=== PATIENT | male | born 1985 | race Caucasian/White ===

== ENCOUNTER 2017-06-13 07:00 | Inpatient (IN) | payer OTHER ==
[~2017-06-13] VITALS: Ht 175.3 cm; Wt 94.3 kg
--- NOTE | ~2017-06-13 | PN ---
Unit #: [id number] #: [id number] Patient: ARAMIS HERNANDEZ [id number] [facility] [address] [place] [address] [id number] I MR#: [id number] NAME: ARAMIS HERNANDEZ. ROOM: P254 Age: 31 Sex: M Admission Date: 06/13/2017 : 1985 Attending Physician: Kari Givens M.D. Admitting Physician: Kari Givens M.D. Primary Care Physician: Generic Doctor Not In System [facility] PROGRESS NOTES DATE OF SERVICE: 06/17/2017 SUBJECTIVE Mr. Hernandez is a 31-year-old white male, who was seen today and chart was reviewed and case was discussed with the staff. He has been anxious, withdrawn, and rather seclusive to himself. It appears to be showing very poor insight into his situation and having attitude take responsibility for his actions leading to hospitalizations and blaming it on the emergency room and the doctors there asking him direct questions and prompting response from him and getting him into the hospital. MENTAL STATUS EXAMINATION Young white male, who was casually dressed with fair personal hygiene, appears to be in no acute distress or discomfort. He was awake and alert on interaction with intact orientation. His mood was anxious with a congruent affect. His speech was slow and goal directed. He denies any current suicidal or homicidal ideations and his insight and judgment remain slightly impaired. TREATMENT PLAN 1. We will continue him on his current treatment protocol. We will monitor his response to the medication and make further adjustments as needed. 2. We will continue to follow up. Dictated by... Kari Givens M.D. IAA/modl TD: 06/18/2017 04:54 JOB #: [id number] Unit #: [id number] #: [id number] Patient: ARAMIS HERNANDEZ [facility] PROGRESS NOTES Page 1 of 1 X Kari Givens MD X PROGRESS NOTE
--- NOTE | ~2017-06-13 | HP ---
Unit #: [id number] #: [id number] Patient: ARAMIS CAMPBELL [id number] [place] [address] [id number] I MR#: [id number] NAME: ARAMIS CAMPBELL. ROOM: P254 Age: 31 Sex: M Admission Date: 06/13/2017 : 1985 Attending Physician: Kari Givens M.D. Admitting Physician: Kari Givens M.D. Primary Care Physician: Generic Doctor Not In System HISTORY AND PHYSICAL HISTORY OF PRESENT ILLNESS Aramis is a 31 year old admitted to [address] [place] [address] with depression and verbalizing wanting to hurt himself. PAST MEDICAL HISTORY Nothing significant. PAST SURGICAL HISTORY Nothing reported. ALLERGIES No known drug allergies. SOCIAL HISTORY He does not smoke. Drinks alcohol occasionally and denies illicit drug use. FAMILY HISTORY Medically noncontributory. REVIEW OF SYSTEMS CONSTITUTIONAL: No fever or chills. HEENT: Denies any sore throat, ear pain or runny nose. CARDIOVASCULAR: Denies chest pain, irregular heart rhythm or palpitations. CHEST: Denies shortness of breath or cough. No hemoptysis. GASTROINTESTINAL: Denies nausea, vomiting, diarrhea or chronic constipation. ENDOCRINE: Denies history of increased thirst or urination. No recent significant weight loss or gain. GENITOURINARY: Denies dysuria, frequency, or hematuria. SKIN: Denies any rashes. HEMATOLOGIC: Denies history of increased bleeding or bruising. MUSCULOSKELETAL: Denies any hot, swollen joints. No generalized muscle pain. NEUROLOGIC: Denies problems with vision or speech. No frequent, severe headaches. No numbness, tingling or weakness in any extremities. Denies loss of bladder or bowel control. CURRENT MEDICATIONS 1. Lexapro 10 mg daily. 2. Milk of Magnesia p.r.n. 3. Maalox p.r.n. 4. Tylenol p.r.n. Unit #: [id number] #: [id number] Patient: ARAMIS CAMPBELL PHYSICAL EXAMINATION GENERAL: Alert, well-nourished, in no apparent distress. VITAL SIGNS: Blood pressure 124/72, heart rate 70, respirations 16, temperature 98.6. WEIGHT: 208. HEIGHT: 5 feet 9 inches. SKIN: Warm and dry without rash or lesion. HEENT: Normocephalic. TMs not viewed. Oral and nasal passages clear. Conjunctivae clear. PERRLA. EOMs intact. NECK: Supple without lymphadenopathy or thyromegaly. HEART: Regular rate and rhythm without murmur. LUNGS: Clear. ABDOMEN: Soft, nontender. : Not done. EXTREMITIES: No evidence of cyanosis, clubbing or edema. Moves all without focal deficit. NEUROLOGICAL: Grossly within normal limits. Cranial Nerves: II: Visual villalobos are intact. III, IV AND : Extraocular movements are intact. Pupils are equal, round and reactive to light. V: Facial sensation is grossly normal. VII: Facial movements and expression are normal. VIII: Auditory acuity grossly intact. IX, X: Uvula is midline. Phonation is normal. XI: Patient shrugs shoulders and turns head normally. XII: Tongue protrudes in the midline. Sensory and Motor Function: Sensory and motor sensation is grossly normal. Motor: moves all extremities well. Coordination: Gait is normal. Deep Tendon Reflexes: Intact. IMPRESSION Psychiatric admission. RECOMMENDATIONS PSYCHIATRIC: Per psychiatrist. MEDICAL: See no contraindication to participate in facility's activities. MEDICAL PROGNOSIS Good. MEDICAL CONDITION Stable. Dictated by... Linda Shah PMariannaAMarianna-Zelda. for Shantanu Rader/alphonso TD: 06/14/2017 15:18 JOB #: [id number] Unit #: [id number] #: [id number] Patient: ARAMIS CAMPBELL HISTORY AND PHYSICAL Page 1 of 1 X Linda Shah HISTORY AND PHYSICAL
--- NOTE | ~2017-06-13 | PN ---
Unit #: [id number] #: [id number] Patient: ARAMIS HERNANDEZ [id number] [facility] [address] [place] [address] [id number] I MR#: [id number] NAME: ARAMIS HERNANDEZ. ROOM: P254 Age: 31 Sex: M Admission Date: 06/13/2017 : 1985 Attending Physician: Kari Givens M.D. Admitting Physician: Kari Givens M.D. Primary Care Physician: Cyn Doctor Not In System [facility] PROGRESS NOTES DATE OF SERVICE: 06/15/2017 SUBJECTIVE Mr. Hernandez is a 31-year-old white male, who was seen today and chart was reviewed and case was discussed with the staff. He has been anxious, withdrawn, and rather seclusive to himself. Meanwhile, he has been cooperative with treatment recommendation and has been taking medications and tolerating them fairly well with no reported side effects. MENTAL STATUS EXAMINATION Young white male, who was casually dressed with a fair personal hygiene and appears to be in no acute distress or discomfort. He was awake and alert with intact orientation. His mood was anxious with a congruent affect. He denies any suicidal or homicidal ideations. His insight and judgment remain slightly impaired. TREATMENT AND PLAN 1. We will continue him on his current medications and treatment protocol. We will monitor his response to medications and make further adjustments as needed. 2. We will continue to follow up. Dictated by... Shantanu Ibrahim/vidhil TD: 06/17/2017 04:17 JOB #: [id number] [facility] PROGRESS NOTES Page 1 of 1 X Kari Givens MD PROGRESS NOTE
--- NOTE | ~2017-06-13 | PN ---
Unit #: [id number] #: [id number] Patient: ARAMIS HERNANDEZ [id number] [facility] [address] [place] [address] [id number] MR#: [id number] NAME: ARAMIS HERNANDEZ ROOM: P254 Age: 31 Sex: M Admission Date: 06/13/2017 : 1985 Attending Physician: Kari Givens M.D. Admitting Physician: Kari Givens M.D. Primary Care Physician: Cyn Doctor Not In System [facility] PROGRESS NOTES DATE 06/14/2017 DISCUSSION Mr. Hernandez is a 31-year-old, white male who was seen today and chart was reviewed and case was discussed with the staff. He seemed to be rather anxious ____ and tried to mask and minimize his presentation and his depressive symptoms and that there is nothing wrong with him and he should not even be here though he does admit to having history of depressive symptoms and denies suicidal ideations and states that the suicidal ideations reported in the emergency room were a mistake. TREATMENT PLAN 1. We will continue him on his current medications and treatment protocol. We will monitor his response to the medication and we will encourage him show better compliance with treatment recommendations. 2. We will continue to follow up. Dictated by... Shantanu Ibrahim/cori TD: 06/17/2017 03:41 JOB #: [id number] [facility] PROGRESS NOTES Page 1 of 1 X Kari Givens MD PROGRESS NOTE
--- NOTE | ~2017-06-13 | PN ---
Unit #: [id number] #: [id number] Patient: ARAMIS HERNANDEZ [id number] [facility] [address] [place] [address] [id number] MR#: [id number] NAME: ARAMIS HERNANDEZ. ROOM: P254 Age: 31 Sex: M Admission Date: 06/13/2017 : 1985 Attending Physician: Kari Givens M.D. Admitting Physician: Kari Givens M.D. Primary Care Physician: Cyn Doctor Not In System [facility] PROGRESS NOTES DATE OF SERVICE: 06/16/2017 SUBJECTIVE Mr. Hernandez is a 31-year-old white male, who was seen today and chart was reviewed and case was discussed with the staff. He has been anxious, withdrawn, and rather seclusive to himself. Meanwhile, he has been cooperative with treatment recommendation and has been taking medications and tolerating them fairly well with no reported side effects. MENTAL STATUS EXAMINATION Young white male, who was casually dressed with a fair personal hygiene and appears to be in no acute distress or discomfort. He was awake and alert on interaction with intact orientation. His mood was anxious with a congruent affect. He denies any suicidal or homicidal ideations. His insight and judgment remain slightly impaired. TREATMENT PLAN 1. We will continue him on his current medications and treatment protocol. We will monitor his response to the medication and make further adjustments as needed. 2. We will continue to follow up. Dictated by... Shantanu Ibrahim/sheila TD: 06/18/2017 04:13 JOB #: [id number] [facility] PROGRESS NOTES Page 1 of 1 X Kari Givens MD PROGRESS NOTE
--- NOTE | ~2017-06-13 | DS ---
Unit #: [id number] #: [id number] Patient: ARAMIS HERNANDEZ [id number] [facility] [address] [place] [address] [id number] I MR#: [id number] NAME: ARAMIS HERNANDEZ. ROOM: P254 Age: 31 Sex: M Admission Date: 06/13/2017 : 1985 Discharge Date: 06/18/2017 Attending Physician: Kari Givens M.D. Primary Care Physician: Generic Doctor Not In System DISCHARGE SUMMARY IDENTIFYING DATA Mr. Hernandez is a 31-year-old white male with history of mood disorder, who was brought to the hospital with suicidal ideations. DISCHARGE DIAGNOSES Psychiatric: Major depressive disorder, recurrent, moderate, without psychotic features. Medical: None. Stressors: Mild psychosocial stressors. HISTORY OF PRESENT ILLNESS Please see initial psychiatric evaluation for details. PAST PSYCHIATRIC HISTORY Please see initial psychiatric evaluation for details. PAST MEDICAL HISTORY Please see initial psychiatric evaluation for details. HOSPITAL COURSE The patient was admitted to the adult psychiatric unit at [facility] and was oriented to the hospital environment. Routine p.r.n. medications were initiated, and he was started back on his home medications. Lexapro was started as an antidepressant and he was closely monitored. He was polite and pleasant and cooperative with the treatment recommendations and was taking the medications regularly and was tolerating them fairly well and was able to show a decent and therapeutic response with improvement in depression and anxiety and was denying any suicidal ideations, intent, or plan and as such, it was decided that he will be discharged home and will continue treatment on an outpatient basis. DISCHARGE MEDICATION Lexapro 10 mg a day for depression. DISCHARGE CONDITION Stable. PROGNOSIS Fair. Dictated by... Kari Givens M.D. Unit #: [id number] #: [id number] Patient: ARAMIS HERNANDEZ IAA/modl TD: 06/18/2017 14:39 JOB #: [id number] DISCHARGE SUMMARY Page 1 of 1 X Kari Givens MD X DISCHARGE SUMMARY
== END 2017-06-18 10:30 | disposition home or self-care (01) | DRG 885 ==
LOC: P1S 12:39 → P2L 12:39
DX: F33.1 Major depressive disorder, recurrent, moderate (principal)